=== PATIENT | male | born 1965 | race Hispanic/Latino ===

== ENCOUNTER 2016-04-15 10:35 | Emergency (ER) | payer MEDICAID, OTHER ==
[~2016-04-15] VITALS: Ht 167.6 cm; Wt 77.3 kg
[~2016-04-15 10:35] MED LIST: CEPH-512 PO
[2016-04-15 10:43] VITALS: BP 131/76; PULSE 90; RESP 20; O2SAT 98
[2016-04-15] MEDS ORDERED: Ketorolac 30 mg/mL 2 mL Inj IM ONE (11:15)
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
[2016-04-15] MEDS ORDERED: TdaP Vaccine 0.5 mL Inj IM ONE (11:30)
--- NOTE | 2016-04-15 13:16 | DRSVH ---
PROCEDURE: CT BRAIN WITHOUT CONTRAST ([id number]) INDICATIONS: cervical tenderness, posttraumatic headache TECHNIQUE: Noncontrast 4.5 mm thick angled axial sections acquired from the foramen magnum to the vertex, with c oronal reformats. COMPARISON: None. FINDINGS: Image quality: Excellent. CSF spaces: Basal cisterns are patent. No extra-axial fluid collections. Ventricles are normal in size and shape. Brain: No midline shift. No intracranial masses or hemorrhage. Huff-white matter interface is norm al. Skull and face: Calvarium and visualized facial bones are intact, without suspicious lesions. Sinuses: Visualized sinuses and mastoids are clear. IMPRESSION: 1. No acute intracranial process. Dictated by: Opal Kessler M.D. on 04/15/2016 at 13:13 Approved by: Opal Kessler M.D. on 04/15/2016 at 13:14
--- NOTE | 2016-04-15 13:20 | DRSVH ---
PROCEDURE: CT CERVICAL SPINE WITHOUT CONTRAST ([id number]) INDICATIONS: cervical tenderness, posttraumatic headache TECHNIQUE: Noncontrast 3 mm thick sections acquired from the skull base to the T4 level. Sagittal and coronal r eformats were then constructed. For radiation dose reduction, the following was used: automated exp osure control, adjustment of mA and/or kV according to patient size. COMPARISON: None. FINDINGS: Image quality: Excellent. Bones: No fractures or dislocations. Visualized superior ribs are intact. There is trace retrolith esis of C5 on C6, C6 on C7. There is mild reversal of cervical curvature. Multilevel degenerative di sc space narrowing is present at C5-C7. Soft tissues: Prevertebral soft tissues are normal in thickness. No paravertebral hematomas. No ap ical pneumothoraces. IMPRESSION: 1. Multilevel degenerative changes without visualized fracture. Dictated by: Opal Kessler M.D. on 04/15/2016 at 13:15 Approved by: Opal Kessler M.D. on 04/15/2016 at 13:18
[2016-04-15] MEDS ORDERED: CYCL5TAB PO (14:26)
[2016-04-15 14:33] VITALS: BP 92/63; PULSE 70; RESP 15; O2SAT 99
== END 2016-04-15 14:35 | disposition home or self-care (01) ==
LOC: EDUNIT# 10:35 → EDBD 10:35 → EDSEX 10:35 → SED 10:35
DX: S16.1XXA Strain of muscle, fascia and tendon at neck level, initial encounter (principal); V44.5XXA Car driver injured in collision with heavy transport vehicle or bus in traffic accident, initial encounter; Y93.89 Activity, other specified; Y92.410 Unspecified street and highway as the place of occurrence of the external cause; Y99.8 Other external cause status; Z23 Encounter for immunization; E11.9 Type 2 diabetes mellitus without complications; F17.210 Nicotine dependence, cigarettes, uncomplicated
CPT/HCPCS: 70450; 72125; 90471; 90715; 96372; 99284; J1885